=== PATIENT | male | born 1965 | race Caucasian/White ===

== ENCOUNTER 2016-10-25 22:22 | Emergency (ER) | payer OTHER ==
--- NOTE | 2016-10-25 23:00 | PD ---
HPI Chief Complaint: ETOH Time Seen by Provider: 22:59 Travel History International Travel<30 days: No Contact w/Intl Traveler<30days: No Traveled to known affect area: No History of Present Illness HPI 51-year-old male with history of alcohol dependency presents to emergency department under a Lopez act for evaluation. Patient states that he has been drinking alcohol and he "drinks a lot everyday." He also reports cocaine use. Lopez act states the patient was unable to stand and fell several times. He did strike his head and sustained a laceration as well to his face. Patient comes in aggressive and belligerent. He is yelling and spitting and threatening staff. He offers little more information at this time. [facility] Past Medical History Medical History: Unable to Obtain Immunizations Current: Yes Social History Alcohol Use: Yes (everyday) Tobacco Use: Yes Substance Use: Yes Allergies-Medications (Allergen,Severity, Reaction): Coded Allergies: No Known Allergies (Unverified , 04/20/16) Reported Meds & Prescriptions Reported Meds & Active Scripts Active No Active Prescriptions or Reported Medications Review of Systems ROS Limitations: Intoxication, Uncooperative, Combative Except as stated in HPI: all other systems reviewed are Neg Physical Exam Exam Limitations: Intoxication, Uncooperative, Combative Narrative GENERAL: Well-nourished male patient, aggressive, belligerent, yelling at staff and threatening, spitting, but in no acute distress. Patient appears to be under the influence with slurred speech and poor judgment SKIN: Warm and dry. Laceration, appears superficial above the left lip however I'm unable to assess this really well at this time. HEAD: Atraumatic. Normocephalic. EYES: Pupils equal and round. No scleral icterus. No injection or drainage. ENT: No nasal bleeding or discharge. Mucous membranes pink and moist. NECK: Trachea midline. No JVD. CARDIOVASCULAR: Tachycardic rate and rhythm. No murmur appreciated. RESPIRATORY: No accessory muscle use. Clear to auscultation. Breath sounds equal bilaterally. GASTROINTESTINAL: Abdomen soft, non-tender, nondistended. Hepatic and splenic margins not palpable. MUSCULOSKELETAL: No obvious deformities. No clubbing. No cyanosis. No edema. NEUROLOGICAL: Awake and alert. No obvious cranial nerve deficits. Motor grossly within normal limits. slurred speech. Data Data Last Documented VS Vital Signs Date Time Temp Pulse Resp B/P Pulse Ox O2 Delivery O2 Flow Rate FiO2 10/26/16 00:22 85 18 Orders Olanzapine Inj (Zyprexa Inj) (10/25/16 23:15) Ct Brain W/O Iv Contrast(Rout) (10/25/16 ) Thiamine Inj (Thiamine Inj) (10/25/16 23:30) MDM Medical Decision Making Medical Screen Exam Complete: Yes Emergency Medical Condition: Yes Medical Record Reviewed: Yes Differential Diagnosis Intoxication versus mood disorder versus personality disorder versus adjustment reaction disorder versus acute psychosis versus intracranial etiology Narrative Course 51-year-old male presents to emergency department under a Lopez act. Patient appears to be under the influence. He does admit to drinking a large amount of alcohol and using cocaine. He is belligerent and aggressive. He is spitting at staff. Patient does appear to have a laceration above the left lip. CT imaging of the brain is ordered however patient is not cooperative and not safe to take CT at this time. [id number] exam completed at 2300. Patient demonstrates the need for violent restraints, demonstrating a risk of harming himself and others. Restraints are noted in place. Distal extremities remain neurovascularly intact. Diagnosis Primary Impression: Alcohol intoxication Qualified Code: F10.129 - Alcohol intoxication, with unspecified complication Additional Impression: Facial abrasion Qualified Code: S00.81XA - Facial abrasion, initial encounter Referrals: [facility] (Out patient) Patient Instructions: Alcohol Intoxication (ED), General Instructions Additional Instructions: Consume alcohol moderation Do not use illegal drugs Follow-up the primary care provider Return immediately with any acute worsening of symptoms Med/Other Pt SpecificInfo: No Change to Meds Scripts No Active Prescriptions or Reported Meds Condition: Joy Brown Oct 25, 2016 23:00
[2016-10-25] MEDS ORDERED: OLANZapine IM 10 MG VIAL IM ONE (23:15)
[2016-10-25] MEDS ORDERED: THIAMINE HCL 200 MG/2 ML VIAL IM ONE (23:30)
--- NOTE | 2016-10-26 05:27 | PD ---
Data Data Last Documented VS Vital Signs Date Time Temp Pulse Resp B/P Pulse Ox O2 Delivery O2 Flow Rate FiO2 10/26/16 00:22 85 18 Orders Olanzapine Inj (Zyprexa Inj) (10/25/16 23:15) Thiamine Inj (Thiamine Inj) (10/25/16 23:30) MDM Medical Record Reviewed: Yes Supervised Visit with DIGNA: Yes Narrative Course I, Dr. Oleary, have reviewed the advance practice practitioner's documentation and am in agreement, met with the patient face to face, made the diagnosis, and the medical decision making was done by me. *My assessment and Findings: Patient has been observed in the ER for about 8 hours. As of 6:30 AM he demonstrates an acceptable degree of clinical sobriety speaking in full sentences with a normal gait. 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 Diagnosis Primary Impression: Alcohol intoxication Qualified Code: F10.129 - Alcohol intoxication, with unspecified complication Additional Impression: Facial abrasion Qualified Code: S00.81XA - Facial abrasion, initial encounter Referrals: [facility] (Out patient) Patient Instructions: General Instructions, Alcohol Intoxication (ED) Additional Instruction: Consume alcohol moderation Do not use illegal drugs Follow-up the primary care provider Return immediately with any acute worsening of symptoms Scripts No Active Prescriptions or Reported Meds Disposition: 01 DISCHARGE HOME Condition: Stable Luciano Oleary MD Oct 26, 2016 05:27
== END 2016-10-26 05:43 | disposition home or self-care (01) ==
LOC: NEPB 22:22 → NEPC 10-26 05:43
DX: S00.81XA Abrasion of other part of head, initial encounter (principal); F10.129 Alcohol abuse with intoxication, unspecified; Z72.0 Tobacco use; W19.XXXA Unspecified fall, initial encounter
CPT/HCPCS: 96372; 99284; J3411

== ENCOUNTER 2017-06-15 22:58 | Emergency (ER) | payer OTHER ==
[~2017-06-15] VITALS: Ht 170.2 cm; Wt 68.0 kg
[2017-06-15 23:17] VITALS: BP 135/75; PULSE 80; RESP 16; TEMP 98.6; O2SAT 95
--- NOTE | 2017-06-16 03:36 | PD ---
HPI Chief Complaint: Alcohol/Drug Intoxication Time Seen by Provider: 03:32 Travel History International Travel<30 days: No Contact w/Intl Traveler<30days: No Traveled to known affect area: No History of Present Illness HPI 52-year-old white male presents to emergency department under [place] act by PD. The patient was found to be heavily intoxicated and unable to care for himself. The patient was brought to the ER for evaluation and treatment. The patient is unable to give any meaningful history. There is no evidence of trauma. PFSH Past Medical History Medical History: Denies Significant Hx Diminished Hearing: No Immunizations Current: Yes Tetanus Vaccination: Unknown Past Surgical History Surgical History: No Previous Surgery Social History Alcohol Use: Yes Tobacco Use: Yes Substance Use: No Allergies-Medications (Allergen,Severity, Reaction): Coded Allergies: No Known Allergies (Unverified , 04/20/16) Reported Meds & Prescriptions Reported Meds & Active Scripts Active No Active Prescriptions or Reported Medications Review of Systems ROS Limitations: Intoxication Physical Exam Narrative GENERAL: Well-nourished, well-developed patient. Smells of EtOH and appears heavily intoxicated. SKIN: Warm and dry. HEAD: Normocephalic and atraumatic. EYES: No scleral icterus. No injection or drainage. ENT: No nasal drainage noted. Mucous membranes pink. Airway patent. NECK: Supple, trachea midline. Moves head freely without obvious discomfort. CARDIOVASCULAR: Regular rate and rhythm without murmurs, gallops, or rubs. RESPIRATORY: Breath sounds equal bilaterally. No accessory muscle use. GASTROINTESTINAL: Abdomen soft, non-tender, nondistended. EXTREMITIES: No cyanosis or edema. BACK: Nontender without obvious deformity. No CVA tenderness. NEURO: Patient is alert and oriented only to person. no sensorimotor deficits. Nonfocal. Slurred speech. Data Data Last Documented VS Vital Signs Date Time Temp Pulse Resp B/P (MAP) Pulse Ox O2 Delivery O2 Flow Rate FiO2 06/15/17 23:20 16 100 06/15/17 23:17 98.6 80 135/75 (95) [facility] Medical Decision Making Medical Screen Exam Complete: Yes Emergency Medical Condition: Yes Medical Record Reviewed: Yes Differential Diagnosis Differential diagnoses: Alcohol intoxication, substance abuse, electrolyte abnormality, malingering Narrative Course This is alcohol intoxication Patient is medically clear. The patient's Novemberman act will be lifted once the patient exhibits sobriety or a sober individual is able to take him home. Diagnosis Primary Impression: Alcohol intoxication Qualified Codes: F10.920 - Alcohol use, unspecified with intoxication, uncomplicated Patient Instructions: General Instructions Additional Instructions: Rest. Increase fluids. Avoid alcohol. Avoid illegal substances. Follow-up with [facility] for detox. Do not operate a car or any heavy machinery under the influence of alcohol or drugs. Follow-up with a medical doctor this week. Return to the ER for emergencies Med/Other Pt SpecificInfo: No Meds Exist/No RX given Scripts No Active Prescriptions or Reported Meds Disposition: 01 DISCHARGE HOME Condition: Stable Hector Nunez Jun 16, 2017 03:36
[2017-06-16 08:22] VITALS: BP 143/76; PULSE 60; RESP 18; O2SAT 98
== END 2017-06-16 10:19 | disposition home or self-care (01) ==
LOC: NEPD 22:58
DX: F10.920 Alcohol use, unspecified with intoxication, uncomplicated (principal); Z72.0 Tobacco use
CPT/HCPCS: 99282